=== PATIENT | female | born 1980 | race American Indian/Alaskan Native ===

== ENCOUNTER 2019-06-09 08:04 | Outpatient (CLI) | payer BC ==
--- NOTE | 2019-06-09 15:55 | Ultrasound Report ---
Left breast ultrasound History: Palpable abnormality made o'clock position of the left breast. Findings: No solid or cystic lesions are seen in the left breast. Impression: This is a negative left breast ultrasound. Note: Negative mammogram and ultrasound should not preclude further evaluation or biopsy of a clinica lly suspicious palpable abnormality. Signer Name: Jorge Ellison MD Signed: 06/09/2019 3:51 PM Workstation Name: [id number]
--- NOTE | 2019-06-09 16:01 | Mammography Report ---
DIGITAL DIAGNOSTIC MAMMOGRAM WITH CAD, 06/09/2019 INDICATION: Palpable abnormality in the left breast TECHNIQUE: Digital bilateral mammographic imaging was performed. Spot compression views were obtaine d. This examination was interpreted with the benefit of Computer-Aided Detection (CAD) analysis. COMPARISON: None available FINDINGS: Breast Density: There are scattered areas of fibroglandular density. There is no evidence of dominant mass, suspicious calcifications or architectural distortion in the l eft breast. There is asymmetric breast tissue in the 3:00 position of the right breast. No suspicious lesions are seen in either breast. There is no focal mammographic abnormality to correspond to the a tammy of palpable concern on the left. Please see separate ultrasound report. IMPRESSION: BI-RADS Category 2: Benign. Unless otherwise clinically indicated, recommend patient return to [facility] screening mammography at age 40. A "normal" or negative report should not discourage follow up or biopsy of a clinically significant f inding. A written summary of these findings will be mailed to the patient. The patient will be entered into a mammography reporting system which will generate a reminder letter for the patient's next appointmen t at the appropriate interval. FURTHER INFORMATION: According to the [employer], yearly mammograms are recommend ed starting at age 40 and continuing as long as a woman is in good health. Clinical Breast Exams shou ld be part of a periodic health exam-about every 3 years for women in their 20s and 30s and every yea r for women 40 and over. Breast self exam is an option for women starting in their 20s. Any breast ch carie noted on a breast self exam should be reported promptly to the patient's healthcare provider. Br east MRI is recommended for women with an approximately 20-25% or greater lifetime risk of breast can cer, including women with a strong family history of breast or ovarian cancer and women who have been treated for Hodgkin's disease. Signer Name: Jorge Ellison MD Signed: 06/09/2019 3:56 PM Workstation Name: [id number]
== END 2019-06-09 08:05 | disposition home or self-care (01) ==
LOC: MAMMO 08:04
PROVIDERS: ATTEND Obstetrics & Gynecology
DX: N63.22 Unspecified lump in the left breast, upper inner quadrant (principal)
CPT/HCPCS: 77066